=== PATIENT | male | born 1940 | race African-American/Black ===

== ENCOUNTER 2023-07-14 12:02 | Emergency (ER) | payer OTHER ==
[~2023-07-14] VITALS: Ht 165.1 cm; Wt 72.6 kg
[2023-07-14 12:02] VITALS: BP_SYST 98; PULSE 66; RESP 17; TEMP 98.3; O2SAT 96
[~2023-07-14 12:02] MED LIST: LEVE750T4 PO
[2023-07-14] MEDS ORDERED: LORazepam 2 MG/ML VIAL IVP ONE (12:15)
[2023-07-14] MEDS ORDERED: levETIRAcetam 1,000 MG in NS 90 ML IV ONE (12:15)
[2023-07-14] MEDS ORDERED: CHOL200075 PO (12:59)
[2023-07-14] MEDS ORDERED: LEVE500T9 PO (12:59)
[2023-07-14] MEDS ORDERED: [UNRECOGNIZED DRUG - CODE] PO (12:59)
[2023-07-14] MEDS ORDERED: FINA-37 PO (12:59)
[2023-07-14] MEDS ORDERED: DOCU-144 PO (12:59)
[2023-07-14] MEDS ORDERED: ACET325T PO (12:59)
[2023-07-14] MEDS ORDERED: MOM PO (12:59)
[2023-07-14] MEDS ORDERED: POLY17PO4 PO (12:59)
[2023-07-14] MEDS ORDERED: LOSA-413 PO (12:59)
[2023-07-14] MEDS ORDERED: LOPE2CAP PO (12:59)
[2023-07-14] MEDS ORDERED: TAMS-11 PO (12:59)
[2023-07-14] MEDS ORDERED: LIP10 PO (12:59)
[2023-07-14] MEDS ORDERED: SERT100T PO (12:59)
[2023-07-14 13:08] LABS: ANION GAP 8 (5-15); CALCIUM 8.9 mg/dL (8.4-11.0); CARBON DIOXIDE 29 mmol/L (23-29); CHLORIDE 106 mmol/L (98-107); CREATININE 0.94 mg/dL (0.55-1.30); GLUCOSE 107 mg/dL (74-106); SODIUM SERUM 143 mmol/L (136-145); UREA NITROGEN, BLOOD 16 mg/dL (8-21)
[2023-07-14 13:20] LABS: BASOPHILS # (AUTO) 0.1 K/uL (0.0-0.2); BASOPHILS % (AUTO) 1.2 % (0.0-2.0); EOSINOPHILS # (AUTO) 0.1 K/uL (0.0-0.4); EOSINOPHILS % (AUTO) 1.8 % (0.0-4.0); HEMATOCRIT 35.4 % (36-54); HEMOGLOBIN 12.1 g/dL (14.0-18.0); LYMPHOCYTES # (AUTO) 1.1 K/uL (1.0-5.5); LYMPHOCYTES % (AUTO) 18.7 % (20.5-51.5); MEAN CORPUSCULAR HEMOGLOBIN 33 pg (27-31); MEAN CORPUSCULAR HGB CONC 34 % (32-36); MEAN CORPUSCULAR VOLUME 98 fL (79.0-98.0); MONOCYTES # (AUTO) 0.5 K/uL (0.0-1.0); MONOCYTES % (AUTO) 7.6 % (1.7-9.3); NEUTROPHILS # (AUTO) 4.2 K/uL (1.8-7.7); NEUTROPHILS % (AUTO) 70.7 % (40.0-70.0); PLATELET COUNT (AUTO) 141 K/uL (130-430); RED BLOOD CELL COUNT(AUTO) 3.62 MIL/uL (4.2-6.2); RED CELL DISTRIBUTION WIDTH 13.4 % (9.0-15.0); WHITE BLOOD COUNT (AUTO) 5.9 K/uL (4.8-10.8)
[2023-07-14 18:20] VITALS: BP_SYST 133; PULSE 68; RESP 20; TEMP 98.3; O2SAT 98
== END 2023-07-14 18:20 | disposition home or self-care (01) ==
LOC: SED 12:02
DX: R56.9 Unspecified convulsions (principal); I10 Essential (primary) hypertension; E78.5 Hyperlipidemia, unspecified; Z86.59 Personal history of other mental and behavioral disorders; Z79.899 Other long term (current) drug therapy
CPT/HCPCS: 99285; 96365; 70450; 80048; 83735; 85025; 84484; 36415; 76376; J1953

== ENCOUNTER 2023-08-10 14:35 | Inpatient (IN) | payer OTHER ==
[~2023-08-10] VITALS: Ht 165.1 cm; Wt 47.6 kg
[~2023-08-10 14:35] MED LIST changes: +ACET325T PO; +CHOL200075 PO; +DOCU-144 PO; +FINA-37 PO; +LEVE500T9 PO; +LIP10 PO; +LOPE2CAP PO; +LOSA-413 PO; +MOM PO; +POLY17PO4 PO; +SERT100T PO; +TAMS-11 PO; +[UNRECOGNIZED DRUG - CODE] PO
[2023-08-10 14:42] VITALS: BP_SYST 174; PULSE 60; RESP 18; TEMP 97.6; O2SAT 96
[2023-08-10] MEDS: NACL 0.9% 1,000 ML IV ONE (14:45)
[2023-08-10 15:17] LABS: BASOPHILS % (AUTO) 1.3 % (0.0-2.0); EOSINOPHILS # (AUTO) 0.1 K/uL (0.0-0.4); EOSINOPHILS % (AUTO) 2.5 % (0.0-4.0); HEMATOCRIT 35.5 % (36-54); LYMPHOCYTES # (AUTO) 1.2 K/uL (1.0-5.5); LYMPHOCYTES % (AUTO) 38.7 % (20.5-51.5); MEAN CORPUSCULAR HEMOGLOBIN 33 pg (27-31); MEAN CORPUSCULAR HGB CONC 34 % (32-36); MEAN CORPUSCULAR VOLUME 98 fL (79.0-98.0); MONOCYTES # (AUTO) 0.4 K/uL (0.0-1.0); MONOCYTES % (AUTO) 12.5 % (1.7-9.3); NEUTROPHILS # (AUTO) 1.4 K/uL (1.8-7.7); PLATELET COUNT (AUTO) 162 K/uL (130-430); RED BLOOD CELL COUNT(AUTO) 3.61 MIL/uL (4.2-6.2); RED CELL DISTRIBUTION WIDTH 13.9 % (9.0-15.0); WHITE BLOOD COUNT (AUTO) 3.2 K/uL (4.8-10.8)
[2023-08-10 15:33] LABS: ANION GAP 8 (5-15); CALCIUM 9.1 mg/dL (8.4-11.0); CARBON DIOXIDE 30 mmol/L (23-29); CHLORIDE 104 mmol/L (98-107); CREATININE 0.83 mg/dL (0.55-1.30); GLUCOSE 94 mg/dL (74-106); POTASSIUM 4.3 mmol/L (3.5-5.1); SODIUM SERUM 142 mmol/L (136-145); UREA NITROGEN, BLOOD 14 mg/dL (8-21)
[2023-08-10 15:34] LABS: INR 1.1 (0.80-1.20); PROTHROMBIN TIME 11.2 SECS (9.5-12.5)
[2023-08-10 15:39] LABS: ALANINE AMINOTRANSFERASE 19 U/L (12-78); ALBUMIN 3.6 g/dL (3.4-4.8); ASPARTATE AMINOTRANSFERASE 17 U/L (10-37); BILIRUBIN,DIRECT 0.2 mg/dL (0.0-0.3); PHOSPHORUS 2.5 mg/dL (2.7-4.5); TOTAL BILIRUBIN 0.5 mg/dL (0.0-1.0); TOTAL PROTEIN, SERUM 7.4 g/dL (6.4-8.3)
[2023-08-10] MEDS: DIPHTH,PERTUSS(ACELL),TET VAC 0.5 ML VIAL (Tdap) I.M. ONE (17:46)
[2023-08-10] MEDS: levETIRAcetam 1,000 MG IV BAG 100 ML IV ONE (18:02)
[2023-08-10 18:53] LABS: BILIRUBIN,URINE NEGATIVE (NEGATIVE); BLOOD, URINE NEGATIVE (NEGATIVE); CLARITY/URINE CLEAR (CLEAR); COLOR,URINE YELLOW (YELLOW); GLUCOSE,URINE NEGATIVE (NEGATIVE); KETONES,URINE NEGATIVE (NEGATIVE); LEUKOCYTE ESTERASE ,URINE NEGATIVE (NEGATIVE); NITRITE, URINE NEGATIVE (NEGATIVE); PH,URINE 7.5 (5.0-8.0); PROTEIN URINE NEGATIVE (NEGATIVE); UROBILINOGEN,URINE 0.2 (0.2-1.0)
[2023-08-10] MEDS ORDERED: MULT1TAB70 PO (19:13)
[2023-08-10] MEDS ORDERED: LAM25 PO (19:13)
[2023-08-10] MEDS ORDERED: MILK OF MAGNESIA 30 ML UDC PO PRN (22:30)
[2023-08-10] MEDS ORDERED: POLYETHYLENE GLYCOL 3350, 17 GM/ POWD.PACK PO PRN (22:30)
[2023-08-10] MEDS ORDERED: ACETAMINOPHEN 325 MG TABLET PO PRN ×2 (22:30→23:00)
[2023-08-10] MEDS ORDERED: LOPERAMIDE HCL 2 MG CAPSULE PO PRN (22:30)
[2023-08-10] MEDS ORDERED: MAG-AL HYDROX/SIMETH 30 ML UDC PO PRN (22:45)
[2023-08-10] MEDS ORDERED: ONDANSETRON HCL 4 MG/2 ML VIAL IVP PRN (23:00)
[2023-08-10] MEDS: LamoTRIgine 25 MG TABLET PO SCH (23:15)
[2023-08-10] MEDS: FINASTERIDE 5 MG TABLET (PROSCAR) PO SCH (23:45)
[2023-08-10] MEDS: levETIRAcetam 500 MG TABLET PO SCH (23:46)
[2023-08-10] MEDS: DOCUSATE SODIUM 100 MG CAPSULE PO SCH (23:46)
[2023-08-11 01:01] LABS: INFLUENZA TYPE A Negative (NEGATIVE); INFLUENZA TYPE B NEGATIVE (NEGATIVE)
[2023-08-11 08:29] LABS: NOVEL CORONAVIRUS(COVID19) NAA Negative (Negative)
[2023-08-11 09:53] LABS: BASOPHILS # (AUTO) 0.1 K/uL (0.0-0.2); BASOPHILS % (AUTO) 1.1 % (0.0-2.0); EOSINOPHILS # (AUTO) 0.2 K/uL (0.0-0.4); EOSINOPHILS % (AUTO) 3.1 % (0.0-4.0); HEMATOCRIT 40.5 % (36-54); HEMOGLOBIN 13.5 g/dL (14.0-18.0); LYMPHOCYTES # (AUTO) 1.3 K/uL (1.0-5.5); LYMPHOCYTES % (AUTO) 27.4 % (20.5-51.5); MEAN CORPUSCULAR HEMOGLOBIN 33 pg (27-31); MEAN CORPUSCULAR HGB CONC 33 % (32-36); MEAN CORPUSCULAR VOLUME 99 fL (79.0-98.0); MONOCYTES # (AUTO) 0.4 K/uL (0.0-1.0); MONOCYTES % (AUTO) 8.5 % (1.7-9.3); NEUTROPHILS # (AUTO) 2.9 K/uL (1.8-7.7); NEUTROPHILS % (AUTO) 59.9 % (40.0-70.0); PLATELET COUNT (AUTO) 163 K/uL (130-430); RED BLOOD CELL COUNT(AUTO) 4.08 MIL/uL (4.2-6.2); RED CELL DISTRIBUTION WIDTH 13.6 % (9.0-15.0)
[2023-08-11 09:54] LABS: WHITE BLOOD COUNT (AUTO) 4.8 K/uL (4.8-10.8)
[2023-08-11] MEDS: MULTIVITAMINS TAB 1 TABLET PO SCH (09:56)
[2023-08-11] MEDS: SERTRALINE HCL 50 MG TABLET PO SCH (09:56)
[2023-08-11] MEDS: CHOLECALCIFEROL (VITAMIN D3) 2,000 UNIT TABLET PO SCH (09:56)
[2023-08-11] MEDS: LOSARTAN POTASSIUM 50 MG TABLET (COZAAR) PO SCH (09:57)
[2023-08-11] MEDS: TAMSULOSIN HCL 0.4 MG CAP PO SCH (09:58)
[2023-08-11 10:05] VITALS: BP_SYST 167; PULSE 66; RESP 17; TEMP 97.8; O2SAT 100
[2023-08-11 10:06] VITALS: O2SAT 100
[2023-08-11 10:09] LABS: ALANINE AMINOTRANSFERASE 22 U/L (12-78); ALBUMIN 3.7 g/dL (3.4-4.8); ANION GAP 7 (5-15); ASPARTATE AMINOTRANSFERASE 15 U/L (10-37); CALCIUM 9.4 mg/dL (8.4-11.0); CARBON DIOXIDE 28 mmol/L (23-29); CHLORIDE 103 mmol/L (98-107); CHOLESTEROL 150 mg/dL (<200); CREATININE 0.79 mg/dL (0.55-1.30); FREE T4 (FREE THYROXINE) 0.8 ng/dL (0.6-1.6); GLUCOSE 89 mg/dL (74-106); HDL CHOLESTEROL 84 mg/dL (>45); POTASSIUM 3.6 mmol/L (3.5-5.1); SODIUM SERUM 138 mmol/L (136-145); THYROID STIMULATING HORMONE 1.53 uIu/mL (0.34-4.82); TOTAL BILIRUBIN 0.6 mg/dL (0.0-1.0); TRIGLYCERIDES 54 mg/dL (30-150); UREA NITROGEN, BLOOD 9 mg/dL (8-21)
[2023-08-11 10:21] VITALS: BP_SYST 167; PULSE 66; RESP 17; TEMP 97.8
[2023-08-11 12:35] VITALS: BP_SYST 172; PULSE 72; RESP 16; O2SAT 98
[2023-08-11] MEDS ORDERED: CYAN-45 PO (14:10)
[2023-08-11] MEDS ORDERED: [UNRECOGNIZED DRUG - CODE] PO (14:14)
[2023-08-11] MEDS ORDERED: VITA180C6 (14:16)
[2023-08-11 16:09] VITALS: BP_SYST 117; PULSE 73; RESP 17; TEMP 97.3; O2SAT 99
[2023-08-11 20:00] VITALS: BP_SYST 123; PULSE 102; RESP 20; TEMP 97.9; O2SAT 97
[2023-08-11] MEDS: levETIRAcetam 500 MG TABLET PO SCH (20:19)
[2023-08-11] MEDS: ATORVASTATIN 10 MG TABLET PO SCH (20:19)
[2023-08-11] MEDS: LamoTRIgine 25 MG TABLET PO SCH (20:20)
[2023-08-11] MEDS: LORazepam 2 MG/ML VIAL IVP PRN (22:04)
[2023-08-12 02:07] VITALS: BP_SYST 151; PULSE 78; RESP 17; TEMP 98.6; O2SAT 100
[2023-08-12 05:40] LABS: BASOPHILS % (AUTO) 0.6 % (0.0-2.0); EOSINOPHILS # (AUTO) 0.2 K/uL (0.0-0.4); HEMATOCRIT 35.1 % (36-54); LYMPHOCYTES # (AUTO) 1.2 K/uL (1.0-5.5); MEAN CORPUSCULAR HEMOGLOBIN 33 pg (27-31); MEAN CORPUSCULAR HGB CONC 34 % (32-36); MEAN CORPUSCULAR VOLUME 98 fL (79.0-98.0); MONOCYTES # (AUTO) 0.5 K/uL (0.0-1.0); MONOCYTES % (AUTO) 11.8 % (1.7-9.3); NEUTROPHILS # (AUTO) 2.6 K/uL (1.8-7.7); NEUTROPHILS % (AUTO) 57.6 % (40.0-70.0); PLATELET COUNT (AUTO) 152 K/uL (130-430); RED BLOOD CELL COUNT(AUTO) 3.59 MIL/uL (4.2-6.2); RED CELL DISTRIBUTION WIDTH 13.7 % (9.0-15.0); WHITE BLOOD COUNT (AUTO) 4.4 K/uL (4.8-10.8)
[2023-08-12 06:07] LABS: ANION GAP 11 (5-15); CALCIUM 8.9 mg/dL (8.4-11.0); CARBON DIOXIDE 27 mmol/L (23-29); CHLORIDE 104 mmol/L (98-107); CREATININE 0.79 mg/dL (0.55-1.30); GLUCOSE 102 mg/dL (74-106); POTASSIUM 3.4 mmol/L (3.5-5.1); SODIUM SERUM 142 mmol/L (136-145); UREA NITROGEN, BLOOD 9 mg/dL (8-21)
[2023-08-12 07:15] LABS: ALANINE AMINOTRANSFERASE 16 U/L (12-78); ALBUMIN 3.4 g/dL (3.4-4.8); ASPARTATE AMINOTRANSFERASE 25 U/L (10-37); CHOLESTEROL 132 mg/dL (<200); HDL CHOLESTEROL 75 mg/dL (>45); TOTAL BILIRUBIN 0.4 mg/dL (0.0-1.0); TOTAL PROTEIN, SERUM 7.1 g/dL (6.4-8.3); TRIGLYCERIDES 51 mg/dL (30-150)
[2023-08-12 08:11] VITALS: BP_SYST 164; PULSE 78; RESP 20; TEMP 97.8; O2SAT 99
[2023-08-12] MEDS: SERTRALINE HCL 50 MG TABLET PO SCH (09:00)
[2023-08-12 10:41] VITALS: O2SAT 99
[2023-08-12] MEDS ORDERED: MORPHINE SULFATE IN 0.9 % NACL 100 ML IV PRN (16:15)
[2023-08-12] MEDS: POTASSIUM CHLORIDE 20 MEQ TABLET.ER PO ONE (17:00)
[2023-08-12] MEDS ORDERED: LORazepam 2 MG/ML VIAL IVP PRN ×2 (17:30)
[2023-08-12 17:32] VITALS: BP_SYST 148; PULSE 69; RESP 18; TEMP 97.6; O2SAT 98
[2023-08-12 20:30] VITALS: BP_SYST 122; PULSE 74; RESP 18; TEMP 97.4; O2SAT 97
[2023-08-12] MEDS: POTASSIUM CHLORIDE 20 MEQ TABLET.ER PO SCH (21:00)
[2023-08-13 00:30] VITALS: BP_SYST 115; PULSE 18; RESP 18; TEMP 97.2; O2SAT 97
[2023-08-13 08:27] VITALS: BP_SYST 122; PULSE 67; RESP 20; TEMP 98.4; O2SAT 99
[2023-08-13 08:30] VITALS: O2SAT 99
[2023-08-13 12:00] VITALS: BP_SYST 112; PULSE 76; RESP 18; TEMP 98.6; O2SAT 99
[2023-08-13 16:00] VITALS: BP_SYST 112; PULSE 66; RESP 18; TEMP 98; O2SAT 100
[2023-08-13 20:05] VITALS: BP_SYST 110; PULSE 65; RESP 18; TEMP 99.5; O2SAT 98
[2023-08-14] VITALS (7 sets, daily range): BP systolic 108–137; PULSE 67–95; RESP 16–20; TEMP 97.2–99.1; O2SAT 95–98
[2023-08-14 07:46] LABS: BASOPHILS % (AUTO) 0.7 % (0.0-2.0); EOSINOPHILS # (AUTO) 0.2 K/uL (0.0-0.4); EOSINOPHILS % (AUTO) 4.8 % (0.0-4.0); HEMATOCRIT 33.2 % (36-54); HEMOGLOBIN 11.4 g/dL (14.0-18.0); LYMPHOCYTES # (AUTO) 1.1 K/uL (1.0-5.5); LYMPHOCYTES % (AUTO) 25.3 % (20.5-51.5); MEAN CORPUSCULAR HEMOGLOBIN 34 pg (27-31); MEAN CORPUSCULAR HGB CONC 34 % (32-36); MEAN CORPUSCULAR VOLUME 98 fL (79.0-98.0); MONOCYTES # (AUTO) 0.5 K/uL (0.0-1.0); MONOCYTES % (AUTO) 11.6 % (1.7-9.3); NEUTROPHILS # (AUTO) 2.5 K/uL (1.8-7.7); NEUTROPHILS % (AUTO) 57.6 % (40.0-70.0); PLATELET COUNT (AUTO) 139 K/uL (130-430); RED BLOOD CELL COUNT(AUTO) 3.41 MIL/uL (4.2-6.2); RED CELL DISTRIBUTION WIDTH 13.4 % (9.0-15.0); WHITE BLOOD COUNT (AUTO) 4.4 K/uL (4.8-10.8)
[2023-08-14 07:58] LABS: ANION GAP 8 (5-15); CARBON DIOXIDE 27 mmol/L (23-29); CHLORIDE 105 mmol/L (98-107); CREATININE 1.02 mg/dL (0.55-1.30); GLUCOSE 81 mg/dL (74-106); POTASSIUM 4.3 mmol/L (3.5-5.1); SODIUM SERUM 140 mmol/L (136-145); UREA NITROGEN, BLOOD 20 mg/dL (8-21)
[2023-08-14] MEDS: POTASSIUM CHLORIDE 20 MEQ TABLET.ER PO SCH (10:38)
[2023-08-15] VITALS (8 sets, daily range): BP systolic 100–132; PULSE 63–87; RESP 15–20; TEMP 96.9–98.5; O2SAT 93–99
[2023-08-16] VITALS: BP_SYST 142; PULSE 86; RESP 20; TEMP 97.7; O2SAT 99
[2023-08-16 04:00] VITALS: BP_SYST 129; PULSE 89; RESP 18; TEMP 97.7; O2SAT 99
[2023-08-16 08:00] VITALS: BP_SYST 90; PULSE 77; RESP 19; TEMP 98.1; O2SAT 99
[2023-08-16 11:21] VITALS: BP_SYST 97; PULSE 64; RESP 16; TEMP 97.9; O2SAT 100
[2023-08-16 15:49] VITALS: BP_SYST 98; PULSE 76; RESP 18; TEMP 98.9; O2SAT 98
[2023-08-16 16:06] VITALS: BP_SYST 98; PULSE 76; RESP 18; TEMP 99; O2SAT 98
[2023-08-16] MEDS ORDERED: LAM25 PO (17:25)
== END 2023-08-16 22:57 | DRG 101 ==
LOC: SED 14:35 → STU 18:01
PROVIDERS: ADMIT Internal Medicine; ATTEND Internal Medicine
PROC: 4A00X4Z Measurement of Central Nervous Electrical Activity, External Approach (ICD-10-PCS; principal; 2023-08-11)
DX: G40.909 Epilepsy, unspecified, not intractable, without status epilepticus (principal); E44.1 Mild protein-calorie malnutrition; Z68.1 Body mass index [BMI] 19.9 or less, adult; S00.03XA Contusion of scalp, initial encounter; N40.0 Benign prostatic hyperplasia without lower urinary tract symptoms; F03.90 Unspecified dementia, unspecified severity, without behavioral disturbance, psychotic disturbance, mood disturbance, and anxiety; E11.42 Type 2 diabetes mellitus with diabetic polyneuropathy; Z20.822 Contact with and (suspected) exposure to COVID-19; D64.9 Anemia, unspecified; I10 Essential (primary) hypertension; W18.39XA Other fall on same level, initial encounter; E78.5 Hyperlipidemia, unspecified; Z86.73 Personal history of transient ischemic attack (TIA), and cerebral infarction without residual deficits; Z79.899 Other long term (current) drug therapy; Z79.1 Long term (current) use of non-steroidal anti-inflammatories (NSAID); Y93.89 Activity, other specified; Y92.89 Other specified places as the place of occurrence of the external cause; Y99.8 Other external cause status
CPT/HCPCS: 36415; 70450-TC; 70551; 71045; 72125-TC; 76376; 80048; 80053; 80061; 80076; 81001; 81003; 82542; 83605; 83735; 84100; 84439; 84443; 84484; 85025; 85610; 85730; 87040; 87081; 87086; 90715; 93005; 93306; 93880; 95816; 97110-GP; 97112-GP; 97116-GP; 97530-GP; 99285; G0378; J1953; J2060